=== PATIENT | male | born 1970 | race Caucasian/White ===

== ENCOUNTER 2017-11-09 17:51 | Emergency (ER) | payer OTHER ==
--- NOTE | 2017-11-09 17:59 | ER Document Report ---
ED Medical Screen (RME) - General Chief Complaint: Mouth Problem Stated Complaint: JAW PAIN Time Seen by Provider: 11/09/17 17:59 Mode of Arrival: Ambulatory Information source: Patient Notes: 47 yo male sent over from dentist, pulled a tooth 1.5 hour ago. Had a bad abscess underneath, still alot of pus that came out. Lots of pain. Dentist sent here because he was worried about IV antibiotics and possible need for drain put in jaw. No fever. - Related Data Allergies/Adverse Reactions: No Known Allergies Allergy (Unverified 11/09/17 17:53) Physical Exam - Vital signs Vitals: Temp Pulse Resp BP Pulse Ox 99.6 F 99 16 184/114 H 97 11/09/17 18:04 11/09/17 18:04 11/09/17 18:04 11/09/17 18:04 11/09/17 18:04 Course - Vital Signs Vital signs: Temp Pulse Resp BP Pulse Ox 99.6 F 99 16 184/114 H 97 11/09/17 18:04 11/09/17 18:04 11/09/17 18:04 11/09/17 18:04 11/09/17 18:04 - Laboratory Result Diagrams: 11/09/17 19:15 11/09/17 19:15 Laboratory results interpreted by me: 11/09/17 11/09/17 19:15 19:15 WBC 20.2 H RDW 14.4 H Seg Neuts % (Manual) 80 H Lymphocytes % (Manual) 10 L Abs Neuts (Manual) 16.2 H Abs Monocytes (Manual) 2.0 H Direct Bilirubin 0.5 H Total Protein 9.1 H
[2017-11-09] MEDS ORDERED: DEXAMETHASONE SOD PHOS INJ 10 MG/1 ML VIAL IV ONE (18:07)
[2017-11-09] MEDS ORDERED: KETOROLAC TROMETHAMINE INJ/PF 30 MG/1 ML SDV IV ONE (18:07)
[2017-11-09] MEDS ORDERED: NORMAL SALINE 1000 ML 1,000 ML IV ONE (18:08)
[2017-11-09] MEDS ORDERED: CLINDAMYCIN 600 MG/D5W RTU 600 MG/50 ML RTUPB IV ONE (19:00)
[2017-11-09 19:43] LABS: HEMOGLOBIN 14.4 g/dL (13.5-17.0); MEAN CORPUSCULAR HEMOGLOBIN 27.3 pg (27.0-33.4); MEAN CORPUSCULAR HGB CONC 33.6 g/dL (32.0-36.0); MEAN CORPUSCULAR VOLUME 81 fl (80-97); PLATELET COUNT 398 10^3/uL (150-450); RED BLOOD COUNT 5.28 10^6/uL (4.35-5.55); RED CELL DISTRIBUTION WIDTH 14.4 % (11.5-14.0); WHITE BLOOD COUNT 20.2 10^3/uL (4.0-10.5)
[2017-11-09 20:00] LABS: ALANINE AMINOTRANSFERASE 41 U/L (21-72); ALBUMIN 4.7 g/dL (3.5-5.0); ALKALINE PHOSPHATASE 86 U/L (38-126); ANION GAP 11 (5-19); ASPARTATE AMINO TRANSFERASE 41 U/L (17-59); BILIRUBIN,DIRECT 0.5 mg/dL (0.0-0.4); BILIRUBIN,TOTAL 0.6 mg/dL (0.2-1.3); BLOOD UREA NITROGEN 12 mg/dL (7-20); CALCIUM 9.9 mg/dL (8.4-10.2); CARBON DIOXIDE 30 mmol/L (22-30); CHLORIDE 102 mmol/L (98-107); GLUCOSE 106 mg/dL (75-110); POTASSIUM 4.2 mmol/L (3.6-5.0); SODIUM 142.6 mmol/L (137-145); TOTAL PROTEIN 9.1 g/dL (6.3-8.2)
[2017-11-09 20:09] LABS: ABSOLUTE NEUTROPHILS# (MANUAL) 16.2 10^3/uL (1.7-8.2); BASOPHILS % (MANUAL) 0 % (0-2); EOSINOPHILS % (MANUAL) 0 % (0-6); LYMPHOCYTES % (MANUAL) 10 % (13-45); MONOCYTES % (MANUAL) 10 % (3-13); SEGMENTED NEUTROPHILS % (MAN) 80 % (42-78); TOTAL CELLS COUNTED 100
[2017-11-09 20:10] LABS: ANISOCYTOSIS SLIGHT; PLATELET COMMENT ADEQUATE; TOXIC GRANULATION SLIGHT
--- NOTE | 2017-11-09 20:23 | RADIOLOGY REPORT (SQ) ---
EXAM DESCRIPTION: CT SOFT TISSUE NECK WITH COMPLETED DATE/TIME: 11/09/2017 7:46 pm REASON FOR STUDY: possible Cristian angina, include floor of mouth COMPARISON: None. TECHNIQUE: Post IV contrasted scanning from skull base through lung apices with review of bone, soft tissue and lung windows. Reconstructed coronal and sagittal MPR images reviewed. All images stored on PACS. All CT scanners at this facility use dose modulation, iterative reconstruction, and/or weight based d osing when appropriate to reduce radiation dose to as low as reasonably achievable (ALARA). [facility]: Dose Right [facility]: CareDose [facility]: Dose Right [facility]: Teradose 4D [facility]: [employer] CONTRAST TYPE AND DOSE: contrast/concentration: Isovue 370.00 mg/ml; Total Contrast Delivered: 75.0 ml; Total Saline Delivered: 55.0 ml RENAL FUNCTION: None required. The patient is less than 50 years old. RADIATION DOSE: CT Rad equipment meets quality standard of care and radiation dose reduction techniq ues were employed. CTDIvol: 12.7 mGy. DLP: 419 mGy-cm. . LIMITATIONS: None. FINDINGS: SKULL BASE: Intact. MAJOR SALIVARY GLANDS: No solid or cystic masses. No inflammatory changes. LYMPHADENOPATHY: No adenopathy. MUCOSAL MASSES OR ASYMMETRY: No mucosal masses or asymmetry. LARYNX/CORDS: No abnormal findings. VASCULAR STRUCTURES: The major vessels are patent. LUNG APICES: Clear. BONES: Intact. THYROID: Normal size. No masses. PARANASAL SINUSES: There is almost complete opacification of the right maxillary sinus. OTHER: No other significant finding. IMPRESSION: Right maxillary sinus disease. TECHNICAL DOCUMENTATION: JOB ID: [id number] Quality ID # [id number]: Final reports with documentation of one or more dose reduction techniques (e.g., Au tomated exposure control, adjustment of the mA and/or kV according to patient size, use of iterative reconstruction technique) 2010 [employer]- All Rights Reserved Reading location - IP/workstation name: [email or web address]
[2017-11-09] MEDS ORDERED: ONDANSETRON HCL INJ/PF 4 MG/2 ML SDV IV ONE (21:31)
[2017-11-09] MEDS ORDERED: MORPHINE SULFATE 10 MG/ML INJ IV ONE (21:31)
--- NOTE | 2017-11-09 21:33 | ER Document Report ---
ED ENT - General Chief Complaint: Mouth Problem Stated Complaint: JAW PAIN Time Seen by Provider: 11/09/17 17:59 Mode of Arrival: Ambulatory Notes: Patient is a 39-year-old male who comes emergency department for chief complaint of right lower jaw pain. He states this afternoon he had a dental extraction performed where a tooth was pulled and there was purulent drainage from the area. He states that he was instructed to come the emergency department for additional evaluation because of the drainage for possible abscess treatment. He denies fever, sore throat, he denies any other concerns. He denies any daily medications. He states he was given a prescription for clindamycin and pain medicine but they are not filled yet. - Related Data Allergies/Adverse Reactions: No Known Allergies Allergy (Unverified 11/09/17 17:53) Past Medical History - General Information source: Patient - Social History Smoking Status: Never Smoker Frequency of alcohol use: None Drug Abuse: None Lives with: Family Family History: Reviewed & Not Pertinent Surgical Hx: Negative - Immunizations Immunizations up to date: Yes Hx Diphtheria, Pertussis, Tetanus Vaccination: Yes Physical Exam - Vital signs Vitals: Temp Pulse Resp BP Pulse Ox 99.6 F 99 16 184/114 H 97 11/09/17 18:04 11/09/17 18:04 11/09/17 18:04 11/09/17 18:04 11/09/17 18:04 Interpretation: Normal - General General appearance: Appears well, Alert - HEENT Head: Normocephalic, Atraumatic Eyes: Normal Conjunctiva: Normal Eyelashes: Normal Pupils: PERRL Ears: Normal Sinus: Normal Nasal: Normal Mouth/Lips: Normal Teeth diagram: 1 - Recent dental extraction with some clotted blood and mild nearby erythema, no soft tissue swelling, no other abnormality noted other than dental caries on oral exam Pharynx: Normal Neck: Normal - I do not appreciate any induration swelling, or even lymphadenopathy on either side of the neck or in the submandibular area; no evidence of Cristian's angina - Respiratory Respiratory status: No respiratory distress Chest status: Nontender Breath sounds: Normal. No: Decreased air movement Chest palpation: Normal - Cardiovascular Rhythm: Regular. No: Tachycardia Heart sounds: Normal auscultation, S1 appreciated, S2 appreciated Murmur: No - Abdominal Inspection: Normal Distension: No distension Bowel sounds: Normal Tenderness: Nontender Organomegaly: No organomegaly - Back Back: Normal, Nontender - Extremities General upper extremity: Normal inspection, Nontender, Normal color, Normal ROM , Normal temperature General lower extremity: Normal inspection, Nontender, Normal color, Normal ROM , Normal temperature, Normal weight bearing. No: Octaviano's sign - Neurological Neuro grossly intact: Yes Cognition: Normal Orientation: AAOx4 [place] Coma Scale Eye Opening: Spontaneous [place] Coma Scale Verbal: Oriented [place] Coma Scale Motor: Obeys Commands [place] Coma Scale Total: 15 Speech: Normal Motor strength normal: LUE, RUE, LLE, RLE Sensory: Normal - Psychological Associated symptoms: Normal affect, Normal mood - Skin Skin Temperature: Warm Skin Moisture: Dry Skin Color: Normal Course - Re-evaluation Re-evalutation: Patient is well-appearing. The area where the extraction was performed has some dried blood over the area, some mild erythema, no swelling of the gumline, no obvious oral abscess at this time, he does not have any swelling of the submandibular area or the of the neck. He is quite well-appearing, he does not have a hot potato voice, posterior pharynx is normal in appearance. CAT scan reviewed, and this included the head, face, jaw, neck. Shows maxillary sinus disease on the right side but does not show any abscess, cellulitis, soft tissue swelling, or even lymphadenopathy. I discussed with patient. Because of lack of evidence of Cristian's angina, abscess, or other abnormality at this time, patient will be discharged to follow -up with his dentist, discussed strict return precautions, patient states he is already prescribed clindamycin and he will begin taking it along with the pain medication that he was given from the dentist. - Vital Signs Vital signs: Temp Pulse Resp BP Pulse Ox 99.6 F 80 16 165/83 H 96 11/09/17 18:04 11/09/17 23:19 11/09/17 23:19 11/09/17 23:19 11/09/17 23:19 - Laboratory Result Diagrams: 11/09/17 19:15 11/09/17 19:15 Laboratory results interpreted by me: 11/09/17 11/09/17 19:15 19:15 WBC 20.2 H RDW 14.4 H Seg Neuts % (Manual) 80 H Lymphocytes % (Manual) 10 L Abs Neuts (Manual) 16.2 H Abs Monocytes (Manual) 2.0 H Direct Bilirubin 0.5 H Total Protein 9.1 H Discharge - Discharge Clinical Impression: Pain, dental, Dental infection Condition: Stable Disposition: HOME, SELF-CARE Additional Instructions: Your CAT scan shows right sided sinus disease but no abscess, cellulitis, or concerning soft tissue swelling is seen. Take your clindamycin prescribed by your dentist, follow-up closely with your dentist for additional evaluation and management. Return if you worsen including developing swelling of the face or neck, fever, or any other concerning or worsening symptoms. Forms: Elevated Blood Pressure
[2017-11-09] MEDS ORDERED: HYDROCODONE/ACETAMINOPHEN 5-325 MG (6 TAB/ER DISP) PO PRN (21:55)
[2017-11-09 23:20] VITALS: BP 165/83
== END 2017-11-09 23:30 | disposition home or self-care (01) ==
LOC: ER 17:51
DX: K04.7 Periapical abscess without sinus (principal); K08.89 Other specified disorders of teeth and supporting structures; R68.84 Jaw pain
CPT/HCPCS: 99284; 96361; 96375; 96365; 85025; 36415; 80053; 70491; J1885; J2270; J2405; J7030; J1100

== ENCOUNTER 2019-12-24 13:35 | Observation (INO) | payer OTHER ==
--- NOTE | 2019-12-24 14:00 | ER Document Report ---
ED Medical Screen (RME) - General Chief Complaint: Flank Pain Stated Complaint: FLANK PAIN Time Seen by Provider: 12/24/19 13:54 Mode of Arrival: Ambulatory Information source: Patient Notes: 49-year-old male with history of GERD and hiatal hernia presents emergency department right lower quadrant abdominal pain for the past 3 to 4 days. Reports nausea. Reports he has not been able to eat. Has not had anything to eat today. Patient right lower quad very tender still has his appendix. Also complaining of some heartburn that started about the same time. Reports he has been taking Maalox without relief of symptoms. Reports history of reflux. No complaints of fever vomiting or diarrhea. I have greeted and performed a rapid initial assessment of this patient. A comprehensive ED assessment and evaluation of the patient, analysis of test results and completion of the medical decision making process will be conducted by additional ED providers. - Related Data Allergies/Adverse Reactions: No Known Allergies Allergy (Unverified 11/09/17 17:53) Past Medical History Renal/ Medical History: Denies: Hx Peritoneal Dialysis - Immunizations Immunizations up to date: Yes Hx Diphtheria, Pertussis, Tetanus Vaccination: Yes Physical Exam - Vital signs Vitals: Temp Pulse Resp BP Pulse Ox 98.0 F 132 H 16 173/109 H 100 12/24/19 13:39 12/24/19 13:39 12/24/19 13:39 12/24/19 13:39 12/24/19 13:39 Course - Vital Signs Vital signs: Temp Pulse Resp BP Pulse Ox 98.0 F 132 H 16 173/109 H 100 12/24/19 13:39 12/24/19 13:39 12/24/19 13:39 12/24/19 13:39 12/24/19 13:39
[2019-12-24 14:27] LABS: ABSOLUTE BASOPHILS # (AUTO) 0.1 10^3/uL (0.0-0.2); ABSOLUTE EOSINOPHILS # (AUTO) 0.1 10^3/uL (0.0-0.6); ABSOLUTE LYMPHOCYTES (AUTO) 2.6 10^3/uL (0.5-4.7); ABSOLUTE MONOCYTES (AUTO) 0.6 10^3/uL (0.1-1.4); ABSOLUTE NEUT (AUTO) 7.7 10^3/uL (1.7-8.2); BASOPHILS % (AUTO) 0.6 % (0-2); EOSINOPHILS % (AUTO) 0.7 % (0-6); HEMATOCRIT 46.2 % (37.9-51.0); HEMOGLOBIN 16.3 g/dL (13.5-17.0); LYMPHOCYTES % (AUTO) 23.4 % (13-45); MEAN CORPUSCULAR HEMOGLOBIN 29.7 pg (27.0-33.4); MEAN CORPUSCULAR HGB CONC 35.3 g/dL (32.0-36.0); MEAN CORPUSCULAR VOLUME 84 fl (80-97); MONOCYTES % (AUTO) 5.5 % (3-13); PLATELET COUNT 323 10^3/uL (150-450); RED CELL DISTRIBUTION WIDTH 13.1 % (11.5-14.0); SEGMENTED NEUTROPHILS % (AUTO) 69.8 % (42-78); TOTAL CELLS COUNTED % (AUTO) 100 %
--- NOTE | 2019-12-24 14:52 | RADIOLOGY REPORT (SQ) ---
EXAM DESCRIPTION: CHEST 2 VIEWS IMAGES COMPLETED DATE/TIME: 12/24/2019 2:40 pm REASON FOR STUDY: heartburn, cp COMPARISON: None. EXAM PARAMETERS: NUMBER OF VIEWS: two views TECHNIQUE: Digital Frontal and Lateral radiographic views of the chest acquired. RADIATION DOSE: NA LIMITATIONS: none FINDINGS: LUNGS AND PLEURA: No opacities, masses or pneumothorax. No pleural effusion. MEDIASTINUM AND HILAR STRUCTURES: No masses or contour abnormalities. HEART AND VASCULAR STRUCTURES: Heart normal size. No evidence for failure. BONES: No acute findings. HARDWARE: None in the chest. OTHER: No other significant finding. IMPRESSION: NO ACUTE RADIOGRAPHIC FINDING IN THE CHEST. TECHNICAL DOCUMENTATION: JOB ID: [id number] 2010 [employer]- All Rights Reserved Reading location - IP/workstation name: [email or web address]
[2019-12-24 14:57] LABS: ALBUMIN 4.7 g/dL (3.5-5.0); ALKALINE PHOSPHATASE 65 U/L (38-126); ANION GAP 9 (5-19); ASPARTATE AMINO TRANSFERASE 26 U/L (17-59); BILIRUBIN,TOTAL 0.5 mg/dL (0.2-1.3); BLOOD UREA NITROGEN 13 mg/dL (7-20); CALCIUM 9.8 mg/dL (8.4-10.2); CARBON DIOXIDE 25 mmol/L (22-30); CHLORIDE 104 mmol/L (98-107); GLUCOSE 110 mg/dL (75-110); POTASSIUM 4.4 mmol/L (3.6-5.0); TOTAL PROTEIN 8.3 g/dL (6.3-8.2)
--- NOTE | 2019-12-24 15:33 | RADIOLOGY REPORT (SQ) ---
EXAM DESCRIPTION: CT ABD/PELVIS WITH IV ONLY IMAGES COMPLETED DATE/TIME: 12/24/2019 3:19 pm REASON FOR STUDY: RLQ pain, eval appendix COMPARISON: None. TECHNIQUE: CT scan of the abdomen and pelvis performed using helical scanning technique with dynamic intravenous contrast injection. No oral contrast. Images reviewed with lung, soft tissue, and bone windows. Reconstructed coronal and sagittal MPR images reviewed. Delayed images for evaluation of the urinary system also acquired. All images stored on PACS. All CT scanners at this facility use dose modulation, iterative reconstruction, and/or weight based d osing when appropriate to reduce radiation dose to as low as reasonably achievable (ALARA). [facility]: Dose Right [facility]: CareDose [facility]: Dose Right [facility]: Teradose 4D [facility]: [employer] CONTRAST TYPE AND DOSE: contrast/concentration: Isovue 350.00 mg/ml; Total Contrast Delivered: 90.0 ml; Total Saline Delivered: 70.0 ml RENAL FUNCTION: GFR > 60. RADIATION DOSE: CT Rad equipment meets quality standard of care and radiation dose reduction techniq ues were employed. CTDIvol: 8.7 - 12.2 mGy. DLP: 1150 mGy-cm.. LIMITATIONS: None. FINDINGS: LOWER CHEST: No significant findings. No nodules or infiltrates. LIVER: Fatty liver without focal masses. SPLEEN: Normal size. No focal lesions. PANCREAS: No masses. No significant calcifications. No adjacent inflammation or peripancreatic fluid collections. Pancreatic duct not dilated. GALLBLADDER: No identified stones by CT criteria. No inflammatory changes to suggest cholecystitis. ADRENAL GLANDS: No significant masses or asymmetry. RIGHT KIDNEY AND URETER: No solid masses. No significant calcifications. No hydronephrosis or hyd roureter. LEFT KIDNEY AND URETER: No solid masses. No significant calcifications. No hydronephrosis or hydr oureter. AORTA AND VESSELS: No aneurysm. No dissection. Renal arteries, SMA, celiac without stenosis. RETROPERITONEUM: No retroperitoneal adenopathy, hemorrhage or masses. BOWEL AND PERITONEAL CAVITY: No masses or inflammatory changes. No free fluid or peritoneal masses. APPENDIX: No inflammatory changes in the right lower quadrant. The appendix is not identified. PELVIS: No mass. No free fluid. Normal bladder. ABDOMINAL WALL: No masses. No hernias. BONES: No significant or acute findings. OTHER: No other significant finding. IMPRESSION: NO SIGNIFICANT OR ACUTE FINDING IN THE ABDOMEN OR PELVIS ON CT SCAN WITH IV CONTRAST. TECHNICAL DOCUMENTATION: JOB ID: [id number] Quality ID # [id number]: Final reports with documentation of one or more dose reduction techniques (e.g., Au tomated exposure control, adjustment of the mA and/or kV according to patient size, use of iterative reconstruction technique) 2010 [employer]- All Rights Reserved Reading location - IP/workstation name: [email or web address]
[2019-12-24 15:42] LABS: APPEARANCE,URINE CLEAR; BILIRUBIN,URINE NEGATIVE (NEGATIVE); COLOR,URINE STRAW; GLUCOSE, URINE NEGATIVE (NEGATIVE); KETONES,URINE TRACE mg/dL (NEGATIVE); LEUKOCYTE ESTERASE,URINE NEGATIVE (NEGATIVE); NITRITE,URINE NEGATIVE (NEGATIVE); PROTEIN,URINE NEGATIVE (NEGATIVE); URINE SPECIFIC GRAVITY 1.035; UROBILINOGEN,URINE NEGATIVE mg/dL (<2.0)
[2019-12-24] MEDS ORDERED: KETOROLAC TROMETHAMINE INJ/PF 30 MG/1 ML SDV IV ONE (17:21)
[2019-12-24] MEDS ORDERED: ONDANSETRON HCL INJ/PF 4 MG/2 ML SDV IV ONE (17:21)
[2019-12-24] MEDS ORDERED: NORMAL SALINE 1000 ML 1,000 ML IV ONE (18:44)
--- NOTE | 2019-12-24 19:27 | ER Document Report ---
Entered by DOMINGA CATES SCRIBE 12/24/19 [id number] Acting as scribe for:MANDY PEÑA DO ED General - General Chief Complaint: Flank Pain Stated Complaint: FLANK PAIN Time Seen by Provider: 12/24/19 13:54 Mode of Arrival: Ambulatory Information source: Patient Notes: This 49 year old male patient presents to the emergency department today with complaints of right lower quadrant abdominal pain with nausea for about 3 days. No history of appendectomy. No dysuria. Patient reports that his pain is exacerbated with certain movements of his torso. Patient states that he has chronic mild lower pelvic discomfort from previous bilateral inguinal hernia repairs/revisions. Patient also mentions that he thinks that he may be constipated, stating that he has not had a "normal" bowel movement in about x3-4 days. Patient states that he has had bowel movements the last few days but he states "they weren't complete normal ones". Patient states he does not feel like he is having to strain any more than usual and his stool has not been dry or hard. Patient denies any recent dietary changes or flank pain. - Related Data Allergies/Adverse Reactions: No Known Allergies Allergy (Unverified 11/09/17 17:53) Past Medical History - General Information source: Patient - Social History Smoking Status: Current Every Day Smoker Cigarette use (# per day): Yes Chew tobacco use (# tins/day): No Frequency of alcohol use: None Drug Abuse: None Lives with: Family Family History: Reviewed & Not Pertinent Patient has homicidal ideation: No - Medical History Medical History: Negative Past Surgical History: Reports: Hx Herniorrhaphy - Bilateral inguinal hernia repair with revision - Immunizations Immunizations up to date: Yes Hx Diphtheria, Pertussis, Tetanus Vaccination: Yes Review of Systems - Review of Systems Constitutional: No symptoms reported EENT: No symptoms reported Cardiovascular: No symptoms reported Respiratory: No symptoms reported Gastrointestinal: See HPI, Abdominal pain, Constipation Genitourinary: No symptoms reported Male Genitourinary: No symptoms reported Musculoskeletal: No symptoms reported Skin: No symptoms reported Hematologic/Lymphatic: No symptoms reported Neurological/Psychological: No symptoms reported -: Yes All other systems reviewed and negative Physical Exam - Vital signs Vitals: Temp 98.0 F 12/24/19 13:35 Interpretation: Normal - General General appearance: Appears well, Alert - HEENT Head: Normocephalic, Atraumatic Eyes: Normal Pupils: PERRL - Respiratory Respiratory status: No respiratory distress Chest status: Nontender Breath sounds: Normal Chest palpation: Normal - Cardiovascular Rhythm: Regular Heart sounds: Normal auscultation Murmur: No - Abdominal Inspection: Normal Distension: No distension Bowel sounds: Normal Tenderness: Tender, McBurney's point, Guarding. No: Rebound Organomegaly: No organomegaly - Back Back: Normal, Nontender - Extremities General upper extremity: Normal inspection, Nontender, Normal color, Normal ROM, Normal temperature General lower extremity: Normal inspection, Nontender, Normal color, Normal ROM, Normal temperature, Normal weight bearing. No: Octaviano's sign - Neurological Neuro grossly intact: Yes Cognition: Normal Orientation: AAOx4 [place] Coma Scale Eye Opening: Spontaneous [place] Coma Scale Verbal: Oriented [place] Coma Scale Motor: Obeys Commands [place] Coma Scale Total: 15 Speech: Normal Motor strength normal: LUE, RUE, LLE, RLE Sensory: Normal - Psychological Associated symptoms: Normal affect, Normal mood - Skin Skin Temperature: Warm Skin Moisture: Dry Skin Color: Normal Course - Re-evaluation Re-evalutation: 12/24/19 18:49 Patient with persistent right lower quadrant pain. CT reviewed. No definite appendicitis. Discussed with Dr. Norris, who will come evaluate the patient. He will remain n.p.o. Fluids running. Patient updated and agreeable to this plan. 12/24/19 19:24 Dr. Norris will admit for observation. Patient is a 49-year-old male who comes in with right lower quadrant pain and nausea that has had for the last 3 days. Received Toradol and Zofran here, but pain has persisted. CT unable to identify appendix. Patient has a history of inguinal hernia repair but no history of appendectomy. Dr. Norris has come to evaluate the patient and will admit for observation due to persistent right lower quadrant pain with associated nausea. Patient is agreeable to this. No antibiotics at this time. Fluids running. Tachycardia on presentation resolving. - Vital Signs Vital signs: Temp Pulse Resp BP Pulse Ox 98.0 F 132 H 8 L 146/104 H 98 12/24/19 13:39 12/24/19 13:39 12/24/19 17:31 12/24/19 17:31 12/24/19 17:31 - Laboratory Result Diagrams: 12/24/19 14:08 12/24/19 14:08 Laboratory results interpreted by me: 12/24/19 12/24/19 12/24/19 14:08 14:08 15:27 WBC 11.0 H Total Protein 8.3 H Urine Ketones TRACE H - Diagnostic Test Radiology reviewed: Reports reviewed Discharge - Discharge Clinical Impression: Abdominal pain, acute, right lower quadrant Condition: Stable Disposition: ADMITTED OBSERVATION Admitting Provider: Surgicalist - [facility] Unit Admitted: Surgical Floor I personally performed the services described in the documentation, reviewed and edited the documentation which was dictated to the scribe in my presence, and it accurately records my words and actions.
[2019-12-24] MEDS ORDERED: ONDANSETRON HCL INJ/PF 4 MG/2 ML SDV IV PRN (19:44)
--- NOTE | 2019-12-24 19:44 | PDOC H&P ---
History of Present Illness Admission Date/PCP: 12/24/2019 Patient complains of: abdoinal pain History of Present Illness: CORNELIUS HUDSON is a 49 year old male This 49 year old male patient presents to the emergency department today with complaints of right lower quadrant abdominal pain. Patient reports that his pain is exacerbated with certain movements of his torso. Patient states that he has chronic mild lower abodminal discomfort from previous bilateral inguinal hernia repairs/revisions. Patient also mentions that he thinks that he may be constipated, stating that he has not had a "normal" bowel movement in about x3-4 days. Patient states that he has had bowel movements the last few days but he states "they weren't complete normal ones". Patient states he does not feel like he is having to strain any more than usual and his stool has not been dry or hard. Patient denies any recen t dietary changes or flank pain. strong fam hx of colon cancer Past Surgical History Past Surgical History: Reports: Herniorrhaphy - Bilateral inguinal hernia repair with revision Social History Lives with: Family Smoking Status: Current Every Day Smoker Electronic Cigarette use?: No Family History Family History: Malignancy Parental Family History Reviewed: Yes Children Family History Reviewed: NA Sibling(s) Family History Reviewed.: NA Medication/Allergy Allergies/Adverse Reactions: No Known Allergies Allergy (Unverified 11/09/17 17:53) Review of Systems Constitutional: PRESENT: anorexia, fatigue Eyes: ABSENT: as per HPI, visual disturbances, other Ears: ABSENT: as per HPI, hearing changes, other Nose, Mouth, and Throat: ABSENT: as per HPI, headache(s), mouth pain, sore throat, vertigo, other Breasts: ABSENT: as per HPI, other Cardiovascular: ABSENT: as per HPI, chest pain, dyspnea on exertion, edema, orthropnea, palpitations, other Respiratory: ABSENT: as per HPI, cough, dyspnea, hemoptysis, sputum, other Gastrointestinal: PRESENT: abdominal pain, constipation, nausea Genitourinary: ABSENT: as per HPI, difficulty urinating, dysuria, hematuria, no cturia, other Musculoskeletal: ABSENT: as per HPI, back pain, deformity, joint swelling, muscle weakness, other Integumentary: ABSENT: as per HPI, diaphoresis, erythema, lesions, pruritus, rash, wounds, other Neurological: ABSENT: as per HPI, abnormal gait, abnormal movements, abnormal speech, confusion, convulsions, dizziness, focal weakness, frequent falls, lack of coordination, memory loss, numbness, paresthesias, restless legs, syncope, tingling, tremor(s), vertigo, weakness, other Psychiatric: ABSENT: as per HPI, anxiety, depression, hallucinations, homidical ideation, suicidal ideation, other Endocrine: ABSENT: as per HPI, cold intolerance, flushing, heat intolerance, menstrual abnormalities, polydipsia, polyphagia, polyuria, other Hematologic/Lymphatic: ABSENT: as per HPI, easy bleeding, easy bruising, lymphadenopathy, other Allergic/Immunologic: ABSENT: as per HPI, seasonal rhinorrhea, other Physical Exam Vital Signs: Temp Pulse Resp BP Pulse Ox 98.0 F 132 H 8 L 146/104 H 98 12/24/19 13:39 12/24/19 13:39 12/24/19 17:31 12/24/19 17:31 12/24/19 17:31 Intake & Output 12/23/19 12/24/19 12/25/19 06:59 06:59 06:59 Weight 79.7 kg General appearance: PRESENT: mild distress Head exam: PRESENT: normocephalic Eye exam: PRESENT: EOMI Ear exam: PRESENT: normal external ear exam Mouth exam: PRESENT: moist Teeth exam: ABSENT: dental caries, dental tenderness, edentulous, poor dentation, other Throat exam: ABSENT: post pharyngeal erythema, tonsillar erythema, tonsillar exudate, tonsillogmegaly, other Neck exam: ABSENT: carotid bruit, full ROM, JVD, lymphadenopathy, meningismus, tenderness, thyromegaly, tracheal deviation, tracheostomy, other Respiratory exam: PRESENT: clear to auscultation monie Cardiovascular exam: PRESENT: RRR Pulses: PRESENT: normal femoral pulses, +2 pedal pulses bilateral Breast: PRESENT: Normal GI/Abdominal exam: PRESENT: tenderness - tenderness in rlq, no rebound Rectal exam: PRESENT: deferred Gentrourinary exam: ABSENT: ecchymosis, erythema, lacerations, lesions, scrotal swelling, testicular tenderness, urethral discharge, indwelling catheter, other Extremities exam: PRESENT: full ROM Musculoskeletal exam: PRESENT: full ROM Neurological exam: PRESENT: alert, awake, oriented to person, oriented to place Psychiatric exam: PRESENT: appropriate affect Skin exam: PRESENT: dry Results Laboratory Results: 12/24/19 14:08 12/24/19 14:08 12/24/19 12/24/19 12/24/19 14:08 14:08 15:27 WBC 11.0 H RBC 5.50 Hgb 16.3 Hct 46.2 MCV 84 MCH 29.7 MCHC 35.3 RDW 13.1 Plt Count 323 Seg Neutrophils % 69.8 Sodium 138.3 Potassium 4.4 Chloride 104 Carbon Dioxide 25 Anion Gap 9 BUN 13 Creatinine 1.09 Est GFR ( Amer) > 60 Glucose 110 Calcium 9.8 Total Bilirubin 0.5 AST 26 Alkaline Phosphatase 65 Total Protein 8.3 H Albumin 4.7 Urine Color STRAW Urine Appearance CLEAR Urine pH 5.0 Ur Specific [place] 1.035 Urine Protein NEGATIVE Urine Glucose (UA) NEGATIVE Urine Ketones TRACE H Urine Blood NEGATIVE Urine Nitrite NEGATIVE Ur Leukocyte Esterase NEGATIVE Urine WBC (Auto) 3 Impressions: Abdomen/Pelvis CT 12/24/19 13:57 IMPRESSION: NO SIGNIFICANT OR ACUTE FINDING IN THE ABDOMEN OR PELVIS ON CT SCAN WITH IV CONTRAST. Chest X-Ray 12/24/19 13:59 IMPRESSION: NO ACUTE RADIOGRAPHIC FINDING IN THE CHEST. Assessment & Plan - Plan Summary Plan Summary: Patient with 2 to 3-day history of right lower quadrant pain presents to the emergency room also complaining of constipation and nausea anorexia for the last 48 hours. Patient has a strong family history of colon cancer in a number of brothers and cousins and his mother just recently of duodenal primary carcinoma. CT scan was obtained in the emergency room which did not show any stranding in the right lower quadrant and the appendix could not be visualized. However on my read of the CT scan there was some thickening of the terminal ileum. I suspect he may have appendicitis and is just not being picked up with a CT at this point however terminal ileitis is also a consideration. I plan on admitting the patient overnight for IV fluids hydration and some pain medications will hold off on antibiotics at this point and reevaluate him in the morning with a repeat CBC and a physical examination. I explained that he may be a good candidate for at least a diagnostic laparoscopy and possible appendectomy.
[2019-12-24] MEDS: MORPHINE SULFATE 10 MG/ML INJ IV PRN (20:27)
--- NOTE | 2019-12-24 21:35 | EKG REPORT ---
SEVERITY:- OTHERWISE NORMAL ECG - SINUS TACHYCARDIA : Confirmed by: Vin Edwards MD 24-Dec-2019 21:34:18
[2019-12-24] MEDS: DEXTROSE 5%-LACTATED RINGERS 1,000 ML IV PRN (22:06)
[2019-12-24] MEDS: PANTOPRAZOLE SODIUM 40 MG VIAL IV SCH (22:06)
[2019-12-25] MEDS: MORPHINE SULFATE 10 MG/ML INJ IV PRN ×2 (00:30→16:35)
[2019-12-25 06:18] LABS: ABSOLUTE EOSINOPHILS # (AUTO) 0.2 10^3/uL (0.0-0.6); ABSOLUTE LYMPHOCYTES (AUTO) 3.7 10^3/uL (0.5-4.7); ABSOLUTE MONOCYTES (AUTO) 0.7 10^3/uL (0.1-1.4); ABSOLUTE NEUT (AUTO) 4.6 10^3/uL (1.7-8.2); BASOPHILS % (AUTO) 0.5 % (0-2); EOSINOPHILS % (AUTO) 2.2 % (0-6); HEMATOCRIT 39.5 % (37.9-51.0); LYMPHOCYTES % (AUTO) 39.8 % (13-45); MEAN CORPUSCULAR HEMOGLOBIN 29.8 pg (27.0-33.4); MEAN CORPUSCULAR HGB CONC 35.1 g/dL (32.0-36.0); MEAN CORPUSCULAR VOLUME 85 fl (80-97); MONOCYTES % (AUTO) 7.8 % (3-13); PLATELET COUNT 273 10^3/uL (150-450); RED BLOOD COUNT 4.66 10^6/uL (4.35-5.55); RED CELL DISTRIBUTION WIDTH 13.1 % (11.5-14.0); SEGMENTED NEUTROPHILS % (AUTO) 49.7 % (42-78); TOTAL CELLS COUNTED % (AUTO) 100 %; WHITE BLOOD COUNT 9.4 10^3/uL (4.0-10.5)
[2019-12-25 06:33] LABS: HEMOGLOBIN 13.9 g/dL (13.5-17.0)
[2019-12-25] MEDS: PANTOPRAZOLE SODIUM 40 MG VIAL IV SCH ×2 (09:13→21:04)
[2019-12-25] MEDS: DEXTROSE 5%-LACTATED RINGERS 1,000 ML IV PRN (09:13)
[2019-12-25] MEDS ORDERED: DEXAMETHASONE SOD PHOSPHATE INJ 4 MG/1 ML VIAL ONE (09:53)
[2019-12-25] MEDS ORDERED: ONDANSETRON HCL INJ/PF 4 MG/2 ML SDV ONE (09:53)
[2019-12-25] MEDS ORDERED: BUPIVACAINE HCL 0.5%-EPI 1:200000 INJ/PF 30 ML VIAL ONE ×2 (09:57→12:16)
[2019-12-25] MEDS ORDERED: ACETAMINOPHEN 1,000 MG/100 ML RTUPB IV PRN (10:07)
[2019-12-25] MEDS: ACETAMINOPHEN 1,000 MG/100 ML RTUPB IV PRN ×2 (11:03→15:09)
[2019-12-25] MEDS ORDERED: FENTANYL CITRATE INJ/PF 100 MCG/2 ML AMPUL ONE (11:36)
[2019-12-25] MEDS ORDERED: PROPOFOL INJ 200 MG/20 ML VIAL IV ONE (11:37)
[2019-12-25] MEDS ORDERED: MIDAZOLAM 2 MG/2 ML INJ ONE (11:37)
[2019-12-25] MEDS ORDERED: CEFAZOLIN INJ 1 GM VIAL ONE (11:52)
[2019-12-25] MEDS ORDERED: METRONIDAZOLE 500 MG/NS RTU 500 MG/100 ML RTUPB IV ONE (11:53)
[2019-12-25] MEDS ORDERED: MEPERIDINE HCL/PF INJ 25 MG/1 ML DISP.SYRIN IV PRN (12:20)
[2019-12-25] MEDS ORDERED: MORPHINE SULFATE 10 MG/ML INJ IV PRN (12:20)
[2019-12-25] MEDS ORDERED: DIPHENHYDRAMINE HCL 50 MG/ML VIAL IV PRN (12:20)
[2019-12-25] MEDS ORDERED: FENTANYL CITRATE INJ/PF 100 MCG/2 ML AMPUL IV PRN ×3 (12:20)
--- NOTE | 2019-12-25 12:56 | Operative Report ---
Nonrecallable Operative Report DATE OF SURGERY: 12/25/19 PREOPERATIVE DIAGNOSIS: Abdominal pain rule out appendicitis POSTOPERATIVE DIAGNOSIS: Abdominal pain rule out appendicitis OPERATION: Diagnostic laparoscopy with laparoscopic appendectomy SURGEON: SHERYL CHU ANESTHESIA: GA TISSUE REMOVED OR ALTERED: Appendix COMPLICATIONS: None ESTIMATED BLOOD LOSS: 25 cc INTRAOPERATIVE FINDINGS: Mildly inflamed appendix PROCEDURE: Patient was brought to the operating room awake alert stable condition placed on the operative table supine position induced under general anesthesia intubated. After appropriate timeout and site verification the procedure commenced. A varies needle was placed into the umbilicus and the abdomen was insufflated with 6 L of CO2 gas. Supraumbilical 5 mm incision was made with a 15 blade and a 5 mm port placed in the abdominal cavity intra-abdominal visualization revealed no evidence of a Veress needle or trocar injury. A suprapubic 5 mm port was placed under direct vision as well as a left lower quadrant 10 mm port. We first visualized the cecum and and noted that the appendix was in a retrocecal position it was mildly inflamed. Because of only the mild inflammation of the severe right lower quadrant abdominal pain I suspect that there may be some other pathology. I evaluated his pelvis and identified the previously placed retroperitoneal mass that could be seen through the retroperitoneum and appeared to be intact without evidence of new hernias. The rectum was lifted up out of the pelvis and that appeared to be normal as was the sigmoid colon. I then identified the terminal ileum and the ileocecal valve and ran the small bowel from the terminal ileum all the way to the ligament of Treitz it would appear to be normal there was no evidence of any thickening no evidence of any serosal abnormalities. I then mobilized the right colon minimally with the Bovie cautery taking down the peritoneal reflection and evaluated the ascending colon and hepatic flexure it appeared to be normal there was no evidence of any serosal excrescences or me or serosal abnormalities The appendix was fixed in a retrocecal position and appeared to be mildly inflamed with some mild inflammation around the mesoappendix I lifted it up took down the mesoappendix with the Bovie cautery created a window at the base of the cecum and placed the JLUIS stapler across the base and fired dividing the appendix from the cecum I then mobilized the rest of the mesoappendix and then came across it with one firing of the Endo JLUIS with a vascular load. I placed the appendix in an Endobag and removed through the left lower quadrant port site. Hemostasis was intact I found no other abnormalities of the intestine I evaluated the gallbladder the stomach there was no duodenal or distal gastric ulcers the transverse colon appeared to be normal as was the descending colon I could not really evaluate the splenic flexure secondary to his obesity and intraperitoneal fat. Most the appendix was removed in an Endobag through the left lower quadrant port site the pelvis and right lower quadrant irrigated and suctioned dry the all ports were removed the fascial defect in the left lower quadrant was closed with 0 Vicryl in the fascia and all 3 skin incisions were closed with intracuticular 4-0 Biosyn Steri-Strips completed the procedure estimated blood loss was less than 25 cc sponge and needle counts were correct x2. The patient was then awakened in the operating extubated transferred recovery in stable condition
[2019-12-25] MEDS: HYDROCODONE/ACETAMINOPHEN 10-325 MG TABLET PO PRN (20:05)
[2019-12-26] MEDS: HYDROCODONE/ACETAMINOPHEN 10-325 MG TABLET PO PRN (07:29)
--- NOTE | 2019-12-26 08:18 | PDOC DISCHARGE SUMMARY ---
General - Admit/Disc Date/PCP Admission Date/Primary Care Provider: 12/24/19 19:46 Discharge Date: 12/26/19 - Discharge Diagnosis Final Diagnosis: acute appendicitis - Assessment Summary: meghan is a 49 y/o male admitted for suspected appendicitis was observed overnight, then taken to or for lap appendectomy sharmaine well. this am sharmaine reg diet pain markedly improved nl wbc ready for dc home today - Additional Information Resuscitation Status: Full Code Discharge Diet: As Tolerated Discharge Activity: Activity As Tolerated, No Lifting Over 10 Pounds Prescriptions: Hydrocodone/Acetaminophen [Sullivan 10-325 Tablet] 1 each PO Q6HP PRN #20 tablet PRN Reason: Home Medications: Omeprazole 20 mg PO DAILY 12/25/19 Hydrocodone/Acetaminophen [Sullivan 10-325 Tablet] 1 each PO Q6HP PRN #20 tablet 12/26/19 History of Present Illiness History of Present Illness: CORNELIUS HUDSON is a 49 year old male This 49 year old male patient presents to the emergency department today with complaints of right lower quadrant abdominal pain. Patient reports that his pain is exacerbated with certain movements of his torso. Patient states that he has chronic mild lower abodminal discomfort from previous bilateral inguinal hernia repairs/revisions. Patient also mentions that he thinks that he may be constipated, stating that he has not had a "normal" bowel movement in about x3-4 days. Patient states that he has had bowel movements the last few days but he states "they weren't complete normal ones". Patient states he does not feel like he is having to strain any more than usual and his stool has not been dry or hard. Patient denies any recent dietary changes or flank pain. strong fam hx of colon cancer Physical Exam Vital Signs: Temp Pulse Resp BP Pulse Ox 97.2 F 58 L 17 101/54 L 98 12/26/19 04:37 12/26/19 04:37 12/26/19 04:37 12/26/19 04:37 12/26/19 04:37 Intake & Output 12/25/19 12/26/19 12/27/19 06:59 06:59 06:59 Intake Total 0 4078 Output Total 50 Balance 0 4028 Weight 81 kg 84.1 kg Results Laboratory Results: WBC 9.4 10^3/uL (4.0-10.5) 12/25/19 05:09 RBC 4.66 10^6/uL (4.35-5.55) 12/25/19 05:09 Hgb 13.9 g/dL (13.5-17.0) D 12/25/19 05:09 Hct 39.5 % (37.9-51.0) 12/25/19 05:09 MCV 85 fl (80-97) 12/25/19 05:09 MCH 29.8 pg (27.0-33.4) 12/25/19 05:09 MCHC 35.1 g/dL (32.0-36.0) 12/25/19 05:09 RDW 13.1 % (11.5-14.0) 12/25/19 05:09 Plt Count 273 10^3/uL (150-450) 12/25/19 05:09 Lymph % (Auto) 39.8 % (13-45) 12/25/19 05:09 Sully % (Auto) 7.8 % (3-13) 12/25/19 05:09 Eos % (Auto) 2.2 % (0-6) 12/25/19 05:09 Baso % (Auto) 0.5 % (0-2) 12/25/19 05:09 Absolute Neuts (auto) 4.6 10^3/uL (1.7-8.2) 12/25/19 05:09 Absolute Lymphs (auto) 3.7 10^3/uL (0.5-4.7) 12/25/19 05:09 Absolute Monos (auto) 0.7 10^3/uL (0.1-1.4) 12/25/19 05:09 Absolute Eos (auto) 0.2 10^3/uL (0.0-0.6) 12/25/19 05:09 Absolute Basos (auto) 0.0 10^3/uL (0.0-0.2) 12/25/19 05:09 Seg Neutrophils % 49.7 % (42-78) 12/25/19 05:09 Sodium 138.3 mmol/L (137-145) 12/24/19 14:08 Potassium 4.4 mmol/L (3.6-5.0) 12/24/19 14:08 Chloride 104 mmol/L (98-107) 12/24/19 14:08 Carbon Dioxide 25 mmol/L (22-30) 12/24/19 14:08 Anion Gap 9 (5-19) 12/24/19 14:08 BUN 13 mg/dL (7-20) 12/24/19 14:08 Creatinine 1.09 mg/dL (0.52-1.25) 12/24/19 14:08 Est GFR ( Amer) > 60 (>60) 12/24/19 14:08 Est GFR (MDRD) Non-Af > 60 (>60) 12/24/19 14:08 Glucose 110 mg/dL (75-110) 12/24/19 14:08 Calcium 9.8 mg/dL (8.4-10.2) 12/24/19 14:08 Total Bilirubin 0.5 mg/dL (0.2-1.3) 12/24/19 14:08 Direct Bilirubin 0.0 mg/dL (0.0-0.4) 12/24/19 14:08 Neonat Total Bilirubin Not Reportable 12/24/19 14:08 Neonat Direct Bilirubin Not Reportable 12/24/19 14:08 Neonat Indirect Bili Not Reportable 12/24/19 14:08 AST 26 U/L (17-59) 12/24/19 14:08 ALT 36 U/L (<50) 12/24/19 14:08 Alkaline Phosphatase 65 U/L (38-126) 12/24/19 14:08 Total Protein 8.3 g/dL (6.3-8.2) H 12/24/19 14:08 Albumin 4.7 g/dL (3.5-5.0) 12/24/19 14:08 Urine Color STRAW 12/24/19 15:27 Urine Appearance CLEAR 12/24/19 15:27 Urine pH 5.0 (5.0-9.0) 12/24/19 15:27 Ur Specific [place] 1.035 12/24/19 15:27 Urine Protein NEGATIVE mg/dL (NEGATIVE) 12/24/19 15:27 Urine Glucose (UA) NEGATIVE mg/dL (NEGATIVE) 12/24/19 15:27 Urine Ketones TRACE mg/dL (NEGATIVE) H 12/24/19 15:27 Urine Blood NEGATIVE (NEGATIVE) 12/24/19 15:27 Urine Nitrite NEGATIVE (NEGATIVE) 12/24/19 15:27 Urine Bilirubin NEGATIVE (NEGATIVE) 12/24/19 15:27 Urine Urobilinogen NEGATIVE mg/dL (<2.0) 12/24/19 15:27 Ur Leukocyte Esterase NEGATIVE (NEGATIVE) 12/24/19 15:27 Urine WBC (Auto) 3 /HPF 12/24/19 15:27 Urine Mucus (Auto) RARE /LPF 12/24/19 15:27 Urine Ascorbic Acid NEGATIVE (NEGATIVE) 12/24/19 15:27 Impressions: Abdomen/Pelvis CT 12/24/19 13:57 IMPRESSION: NO SIGNIFICANT OR ACUTE FINDING IN THE ABDOMEN OR PELVIS ON CT SCAN WITH IV CONTRAST. Chest X-Ray 12/24/19 13:59 IMPRESSION: NO ACUTE RADIOGRAPHIC FINDING IN THE CHEST.
[2019-12-26] MEDS ORDERED: ONDANSETRON HCL INJ/PF 4 MG/2 ML SDV IV PRN (09:30)
[2019-12-26 10:15] VITALS: BP 137/88
[2019-12-26] MEDS: PANTOPRAZOLE SODIUM 40 MG VIAL IV SCH (10:32)
== END 2019-12-26 10:25 | disposition home or self-care (01) ==
LOC: ER 13:35 → EH 19:46 → 4N 21:52
PROVIDERS: ATTEND Surgery
DX: K38.8 Other specified diseases of appendix (principal); E66.9 Obesity, unspecified; R10.2 Pelvic and perineal pain; G89.28 Other chronic postprocedural pain; K21.9 Gastro-esophageal reflux disease without esophagitis; F17.210 Nicotine dependence, cigarettes, uncomplicated; R00.0 Tachycardia, unspecified; Z80.0 Family history of malignant neoplasm of digestive organs; Z87.19 Personal history of other diseases of the digestive system
CPT/HCPCS: 93005; 99285; 96361; 96374; 96375; 36415 ×2; 85025 ×2; 80053; 81001; 88304 ×2; 71046; 74177; 93010; 99140; 00790; 44970; G0378 ×4; J2250; J3490 ×2; J0690; J1100; J3010; J1885; J2270 ×2; C9113 ×2; J2405 ×2; J7121 ×2; J7030; J2704; J0131; 790